=== PATIENT | female | born 1960 | race African-American/Black ===

== ENCOUNTER 2018-02-18 15:01 | Emergency (ER) | payer MEDICARE ==
[~2018-02-18] VITALS: Ht 157.5 cm; Wt 59.1 kg
[~2018-02-18 15:01] MED LIST: ALEN70TA69 PO; ASPI-1213 PO; ATOR40TA71 PO; AUD NEB; DABI150 PO; DIME240C2 PO; DSS100 PO; FURO20 PO; GABA-533 PO; IPRNEB IH; KDUR20 PO; LEVO88TA7 PO; OMEP20 PO; PRED10 PO; TRAM50TA4 PO; VITAD1000 PO
[2018-02-18 15:52] LABS: GLUCOSE,POINT OF CARE 107 MG/DL (70-110)
[2018-02-18 16:54] LABS: HEMOGLOBIN 13.3 g/dL (12.0-16.0); MEAN CORPUSCULAR HEMOGLOBIN 27.6 pg (26.0-34.0); MEAN CORPUSCULAR HGB CONC 34.1 G/dL (31.0-37.0); MEAN CORPUSCULAR VOLUME 81 fL (80-100); PLATELET COUNT (AUTO) 209 K/uL (150-450); RED BLOOD CELL COUNT(AUTO) 4.81 MIL/uL (4.00-5.20)
[2018-02-18 17:06] LABS: ANION GAP 11 mmol/L (8-16); CALCIUM, TOTAL 8.7 mg/dL (8.8-10.5); CARBON DIOXIDE 28 mmol/L (22-29); CHLORIDE 103 mmol/L (98-107); CREATININE 1.04 mg/dL (0.60-1.30); GLOMERULAR FILTR. RATE CALC > 60 mL/min (>60); GLUCOSE,RANDOM 111 mg/dL (70-110); POTASSIUM 3.4 mmol/L (3.5-5.1); SODIUM SERUM 142 mmol/L (136-145); UREA NITROGEN, BLOOD 9 mg/dL (7-18)
[2018-02-18 17:22] LABS: BAND NEUTROPHILS % (MANUAL) 9 % (1-5); BASOPHILS % (MANUAL) 4 % (0-2); EOSINOPHILS % (MANUAL) 2 % (1-6); LYMPHOCYTES % (MANUAL) 31 % (22-44); METAMYELOCYTES % 1 % (0-0); MONOCYTES % (MANUAL) 4 % (2-9); SEGMENTED NEUTROPHILS % 49 % (40-70)
[2018-02-18 19:19] LABS: APPEARANCE,URINE CLEAR (CLEAR); GLUCOSE, URINE (UA) NEGATIVE (NEGATIVE); KETONES,URINE NEGATIVE (NEGATIVE); LEUKOCYTE ESTERASE ,URINE NEGATIVE (NEGATIVE); NITRATE,URINE NEGATIVE (NEGATIVE); OCCULT BLOOD,URINE NEGATIVE (NEGATIVE); PH,URINE 5.5 (5.0-8.0); PROTEIN,URINE TRACE (NEGATIVE)
[2018-02-18 19:24] LABS: BILIRUBIN,URINE PRELIM. POSITIVE (NEGATIVE)
[2018-02-18] MEDS ORDERED: SODIUM PHOS/SODIUM BIPHOS 133 ML ENEMA PR ONE (21:00)
[2018-02-18 22:25] VITALS: BP 121/75
== END 2018-02-18 22:30 | disposition home or self-care (01) ==
LOC: EMS 15:02
DX: K59.00 Constipation, unspecified (principal); G35 Multiple sclerosis; I11.0 Hypertensive heart disease with heart failure; I50.9 Heart failure, unspecified; I25.10 Atherosclerotic heart disease of native coronary artery without angina pectoris; E78.00 Pure hypercholesterolemia, unspecified; I25.2 Old myocardial infarction; E03.9 Hypothyroidism, unspecified; F17.210 Nicotine dependence, cigarettes, uncomplicated; Z95.1 Presence of aortocoronary bypass graft; Z79.82 Long term (current) use of aspirin
CPT/HCPCS: 74018; 82962; 85007; 99285

== ENCOUNTER 2019-09-17 04:55 | Inpatient (IN) | payer MEDICARE ==
[~2019-09-17] VITALS: Ht 162.6 cm; Wt 60.5 kg
[~2019-09-17 04:55] MED LIST changes: +ALEN70TA19 PO; -ALEN70TA69 PO; -ASPI-1213 PO; +ASPI-1484 PO; +CHOL100018 PO; -VITAD1000 PO
[2019-09-17] MEDS ORDERED: LISI-660 PO (05:16)
[2019-09-17] MEDS ORDERED: TIZA4TAB6 PO (05:16)
[2019-09-17] MEDS ORDERED: CLOP75TA3 PO (05:16)
[2019-09-17] MEDS ORDERED: METO25XL PO (05:16)
[2019-09-17 07:11] LABS: APPEARANCE,URINE CLOUDY (CLEAR); BASOPHILS % (AUTO) 0.5 % (0.0-2.0); BILIRUBIN,URINE NEGATIVE (NEGATIVE); EOSINOPHILS % (AUTO) 2.9 % (1.0-6.0); GLUCOSE, URINE (UA) NEGATIVE (NEGATIVE); HEMATOCRIT 39.5 % (36-46); HEMOGLOBIN 13.2 g/dL (12.0-16.0); KETONES,URINE NEGATIVE (NEGATIVE); LEUKOCYTE ESTERASE ,URINE NEGATIVE (NEGATIVE); LYMPHOCYTES # (AUTO) 2.8 K/uL (1.0-4.8); LYMPHOCYTES % (AUTO) 24.8 % (22.0-44.0); MEAN CORPUSCULAR HEMOGLOBIN 27.4 pg (26.0-34.0); MEAN CORPUSCULAR HGB CONC 33.3 G/dL (31.0-37.0); MEAN CORPUSCULAR VOLUME 82 fL (80-100); MONOCYTES # (AUTO) 0.9 K/uL (0.1-1.0); MONOCYTES % (AUTO) 7.8 % (2.0-9.0); NEUTROPHILS # (AUTO) 7.3 K/uL (1.8-7.7); NITRATE,URINE NEGATIVE (NEGATIVE); OCCULT BLOOD,URINE NEGATIVE (NEGATIVE); PLATELET COUNT (AUTO) 322 K/uL (150-450); PROTEIN,URINE NEGATIVE (NEGATIVE); RED BLOOD CELL COUNT(AUTO) 4.81 MIL/uL (4.00-5.20); RED CELL DISTRIBUTION WIDTH 15.7 % (11.5-14.5)
[2019-09-17 07:18] LABS: ANION GAP 6 mmol/L (8-16); CALCIUM, TOTAL 8.8 mg/dL (8.8-10.5); CARBON DIOXIDE 31 mmol/L (22-29); CHLORIDE 108 mmol/L (98-107); CREATININE 0.82 mg/dL (0.60-1.30); GLOMERULAR FILTR. RATE CALC > 60 mL/min (>60); GLUCOSE,RANDOM 102 mg/dL (70-110); SODIUM SERUM 145 mmol/L (136-145); UREA NITROGEN, BLOOD 13 mg/dL (7-18)
[2019-09-17 07:23] LABS: BACTERIA,URINE None Seen /HPF (None Seen); INR 0.9 (0.9-1.1); PROTHROMBIN TIME 9.5 SEC (9.4-11.6); RBC,URINE None Seen /HPF (0-2); SQUAMOUS EPITHELIAL CELL,UR Few /LPF (None Seen); WBC,URINE 0-2 /HPF (0-5)
[2019-09-17 07:24] LABS: AMORPHOUS SEDIMENT,UR Many /LPF (None Seen)
[2019-09-17 07:25] LABS: ALANINE AMINOTRANSFERASE 17 U/L (12-78); ALBUMIN 3.4 g/dL (3.4-5.0); ALKALINE PHOSPHATASE 149 U/L (46-116); ASPARTATE AMINOTRANSFERASE 12 U/L (15-37); BILIRUBIN,TOTAL 0.3 mg/dL (0.1-1.0); CREATINE KINASE, TOTAL ONLY 45 U/L (26-192); TOTAL PROTEIN, SERUM 7.2 g/dL (6.4-8.2)
[2019-09-17 07:33] LABS: B-TYPE NATRIURETIC PEPTIDE 106 pg/mL (0-100)
[2019-09-17] MEDS ORDERED: NITROGLYCERIN 2% (1 GM=INCH) PACKET TP ONE (08:30)
[2019-09-17] MEDS ORDERED: MORPHINE SULFATE 2 MG/ML SYRINGE IVP ONE (08:30)
[2019-09-17] MEDS ORDERED: ONDANSETRON HCL 4 MG/2 ML VIAL IVP ONE (08:30)
[2019-09-17] MEDS ORDERED: ACETAMINOPHEN 325 MG TABLET PO PRN (10:15)
[2019-09-17] MEDS ORDERED: IPRATROPIUM BROMIDE 0.5 MG/2.5 ML NEB SOLUTION NEB PRN (10:15)
[2019-09-17] MEDS ORDERED: MAGNESIUM HYDROXIDE SUSPENSION 30 ML UDCUP PO PRN (10:15)
[2019-09-17] MEDS ORDERED: ZOLPIDEM TARTRATE 5 MG TABLET PO PRN (10:15)
[2019-09-17] MEDS ORDERED: BISACODYL 10 MG RECTAL RECTAL SUPPOSITORY PR PRN (10:15)
[2019-09-17] MEDS ORDERED: MORPHINE SULFATE 2 MG/ML SYRINGE IVP PRN (10:15)
[2019-09-17] MEDS ORDERED: HYDROCODONE/ACETAMINOPHEN 5-325 MG TABLET PO PRN (10:15)
[2019-09-17] MEDS ORDERED: ONDANSETRON HCL 4 MG/2 ML VIAL IVP PRN (10:15)
[2019-09-17] MEDS ORDERED: ALBUTEROL SULFATE 2.5 MG/0.5 ML NEB SOLUTION NEB PRN (10:15)
[2019-09-17] MEDS ORDERED: LEVO75 PO (11:04)
[2019-09-17] MEDS: MethylPREDNISolone SOD SUCC 125 MG/2 ML VIAL IVP SCH ×2 (11:22→18:54)
[2019-09-17] MEDS: ALBUTEROL SULFATE 2.5 MG/0.5 ML NEB SOLUTION NEB SCH ×2 (15:16→20:09)
[2019-09-17] MEDS: IPRATROPIUM BROMIDE 0.5 MG/2.5 ML NEB SOLUTION NEB SCH ×2 (15:16→20:09)
[2019-09-17 16:09] VITALS: BP 94/61
[2019-09-17] MEDS: TiZANidine HCL 4 MG TABLET PO SCH (16:43)
[2019-09-17] MEDS: GABAPENTIN 400 MG CAPSULE PO SCH ×2 (16:43→20:35)
[2019-09-17] MEDS: HEPARIN SODIUM,PORCINE 5,000 UNITS/ML VIAL SQ SCH (16:44)
[2019-09-17] MEDS: BENZONATATE 100 MG CAPSULE PO SCH ×2 (16:44→20:36)
[2019-09-17] MEDS: NITROGLYCERIN 2% (1 GM=INCH) PACKET TP SCH (16:46)
[2019-09-17 20:09] VITALS: BP 100/63
[2019-09-17] MEDS: DOCUSATE SODIUM 100 MG CAPSULE PO SCH (20:35)
[2019-09-17] MEDS: GuaiFENesin SR 600 MG ER TABLET PO SCH (20:35)
[2019-09-17] MEDS: FUROSEMIDE 20 MG TABLET PO SCH (20:36)
[2019-09-17] MEDS: ATORVASTATIN CALCIUM 40 MG TABLET PO SCH (20:37)
[2019-09-17 23:41] VITALS: BP 143/81
[2019-09-18] MEDS: MethylPREDNISolone SOD SUCC 125 MG/2 ML VIAL IVP SCH ×4 (00:22→17:36)
[2019-09-18] MEDS: NITROGLYCERIN 2% (1 GM=INCH) PACKET TP SCH ×2 (00:23→08:00)
[2019-09-18] MEDS: HEPARIN SODIUM,PORCINE 5,000 UNITS/ML VIAL SQ SCH ×3 (00:23→15:40)
[2019-09-18] MEDS: TiZANidine HCL 4 MG TABLET PO SCH ×3 (00:23→15:40)
[2019-09-18] MEDS: IPRATROPIUM BROMIDE 0.5 MG/2.5 ML NEB SOLUTION NEB SCH ×4 (02:00→20:19)
[2019-09-18] MEDS: ALBUTEROL SULFATE 2.5 MG/0.5 ML NEB SOLUTION NEB SCH ×4 (02:00→20:19)
[2019-09-18] MEDS: LEVOTHYROXINE SODIUM 75 MCG TABLET PO SCH (06:12)
[2019-09-18 06:22] VITALS: BP 95/57
[2019-09-18] MEDS ORDERED: ALENDRONATE SODIUM 70 MG TABLET PO SCH (06:30)
[2019-09-18 07:01] LABS: BASOPHILS % (AUTO) 0.1 % (0.0-2.0); EOSINOPHILS % (AUTO) 0.1 % (1.0-6.0); HEMOGLOBIN 11.9 g/dL (12.0-16.0); LYMPHOCYTES # (AUTO) 1.3 K/uL (1.0-4.8); LYMPHOCYTES % (AUTO) 9.2 % (22.0-44.0); MEAN CORPUSCULAR HEMOGLOBIN 27.9 pg (26.0-34.0); MEAN CORPUSCULAR HGB CONC 33.9 G/dL (31.0-37.0); MEAN CORPUSCULAR VOLUME 82 fL (80-100); MONOCYTES # (AUTO) 0.2 K/uL (0.1-1.0); MONOCYTES % (AUTO) 1.8 % (2.0-9.0); NEUTROPHILS # (AUTO) 12.1 K/uL (1.8-7.7); PLATELET COUNT (AUTO) 303 K/uL (150-450); RED BLOOD CELL COUNT(AUTO) 4.26 MIL/uL (4.00-5.20); RED CELL DISTRIBUTION WIDTH 15.7 % (11.5-14.5)
[2019-09-18 07:08] LABS: NEUTROPHILS % (AUTO) 88.8 % (40.0-70.0)
[2019-09-18 07:14] LABS: ANION GAP 9 mmol/L (8-16); CALCIUM, TOTAL 8.9 mg/dL (8.8-10.5); CARBON DIOXIDE 27 mmol/L (22-29); CHLORIDE 106 mmol/L (98-107); CHOL/HDL RATIO 3.3 (3.9-5.7); CHOLESTEROL 179 mg/dL (131-200); CREATININE 0.77 mg/dL (0.60-1.30); GLOMERULAR FILTR. RATE CALC > 60 mL/min (>60); GLUCOSE,RANDOM 200 mg/dL (70-110); HDL CHOLESTEROL 54 mg/dL (40-60); LDL CHOL (CALC.) 104 mg/dL (0-130); POTASSIUM 3.9 mmol/L (3.5-5.1); SODIUM SERUM 142 mmol/L (136-145); TRIGLYCERIDES 107 mg/dL (15-150); UREA NITROGEN, BLOOD 13 mg/dL (7-18)
[2019-09-18 08:39] VITALS: BP 114/63
[2019-09-18] MEDS ORDERED: METOPROLOL SUCCINATE 25 MG ER TABLET PO SCH (09:00)
[2019-09-18] MEDS: POTASSIUM CHLORIDE 20 MEQ ER TABLET PO SCH (09:13)
[2019-09-18] MEDS: CHOLECALCIFEROL (VIT D3) 1,000 UNITS TABLET PO SCH (09:14)
[2019-09-18] MEDS: DOCUSATE SODIUM 100 MG CAPSULE PO SCH ×2 (09:14→22:41)
[2019-09-18] MEDS: BENZONATATE 100 MG CAPSULE PO SCH ×3 (09:14→22:44)
[2019-09-18] MEDS: GABAPENTIN 400 MG CAPSULE PO SCH ×3 (09:14→22:43)
[2019-09-18] MEDS: PANTOPRAZOLE SODIUM 40 MG DR TABLET PO SCH (09:14)
[2019-09-18] MEDS: ASPIRIN 81 MG CHEWABLE TABLET PO SCH (09:15)
[2019-09-18] MEDS: GuaiFENesin SR 600 MG ER TABLET PO SCH ×2 (09:15→22:43)
[2019-09-18] MEDS: CLOPIDOGREL BISULFATE 75 MG TABLET PO SCH (09:15)
[2019-09-18] MEDS: FUROSEMIDE 20 MG TABLET PO SCH ×2 (09:15→22:41)
[2019-09-18 10:59] VITALS: BP 101/58
[2019-09-18] MEDS: LISINOPRIL 5 MG TABLET PO SCH (12:04)
[2019-09-18 15:06] VITALS: BP 88/63
[2019-09-18] MEDS: HYDROCORTISONE 2.5% 30 GM CREAM TP PRN (15:44)
[2019-09-18 19:46] VITALS: BP 94/58
[2019-09-18] MEDS: ATORVASTATIN CALCIUM 40 MG TABLET PO SCH (22:42)
[2019-09-18] MEDS: BISACODYL 10 MG RECTAL RECTAL SUPPOSITORY PR SCH (22:45)
[2019-09-19] MEDS: HEPARIN SODIUM,PORCINE 5,000 UNITS/ML VIAL SQ SCH ×2 (00:01→08:59)
[2019-09-19 00:03] VITALS: BP 103/50
[2019-09-19] MEDS: TiZANidine HCL 4 MG TABLET PO SCH ×2 (00:04→08:58)
[2019-09-19] MEDS: MethylPREDNISolone SOD SUCC 125 MG/2 ML VIAL IVP SCH ×2 (00:05→06:40)
[2019-09-19] MEDS: IPRATROPIUM BROMIDE 0.5 MG/2.5 ML NEB SOLUTION NEB SCH ×3 (03:16→14:00)
[2019-09-19] MEDS: ALBUTEROL SULFATE 2.5 MG/0.5 ML NEB SOLUTION NEB SCH ×3 (03:17→14:00)
[2019-09-19 04:35] VITALS: BP 105/52
[2019-09-19] MEDS: LEVOTHYROXINE SODIUM 75 MCG TABLET PO SCH (06:37)
[2019-09-19 07:06] LABS: BASOPHILS % (AUTO) 0.1 % (0.0-2.0); EOSINOPHILS % (AUTO) 0.1 % (1.0-6.0); HEMATOCRIT 34.9 % (36-46); HEMOGLOBIN 11.7 g/dL (12.0-16.0); LYMPHOCYTES # (AUTO) 1.2 K/uL (1.0-4.8); LYMPHOCYTES % (AUTO) 6.6 % (22.0-44.0); MEAN CORPUSCULAR HEMOGLOBIN 27.5 pg (26.0-34.0); MEAN CORPUSCULAR HGB CONC 33.5 G/dL (31.0-37.0); MEAN CORPUSCULAR VOLUME 82 fL (80-100); MONOCYTES # (AUTO) 0.6 K/uL (0.1-1.0); MONOCYTES % (AUTO) 3.5 % (2.0-9.0); NEUTROPHILS # (AUTO) 16.6 K/uL (1.8-7.7); PLATELET COUNT (AUTO) 302 K/uL (150-450); RED BLOOD CELL COUNT(AUTO) 4.26 MIL/uL (4.00-5.20); RED CELL DISTRIBUTION WIDTH 15.9 % (11.5-14.5)
[2019-09-19 07:07] LABS: NEUTROPHILS % (AUTO) 89.7 % (40.0-70.0)
[2019-09-19 07:37] LABS: ANION GAP 7 mmol/L (8-16); CALCIUM, TOTAL 8.5 mg/dL (8.8-10.5); CARBON DIOXIDE 27 mmol/L (22-29); CHLORIDE 107 mmol/L (98-107); CREATININE 0.85 mg/dL (0.60-1.30); GLOMERULAR FILTR. RATE CALC > 60 mL/min (>60); GLUCOSE,RANDOM 180 mg/dL (70-110); POTASSIUM 3.9 mmol/L (3.5-5.1); SODIUM SERUM 141 mmol/L (136-145); UREA NITROGEN, BLOOD 10 mg/dL (7-18)
[2019-09-19 07:38] VITALS: BP 101/64
[2019-09-19] MEDS: CHOLECALCIFEROL (VIT D3) 1,000 UNITS TABLET PO SCH (08:57)
[2019-09-19] MEDS: POTASSIUM CHLORIDE 20 MEQ ER TABLET PO SCH (08:58)
[2019-09-19] MEDS: GABAPENTIN 400 MG CAPSULE PO SCH (08:58)
[2019-09-19] MEDS: BENZONATATE 100 MG CAPSULE PO SCH (08:58)
[2019-09-19] MEDS: PANTOPRAZOLE SODIUM 40 MG DR TABLET PO SCH (08:58)
[2019-09-19] MEDS: CLOPIDOGREL BISULFATE 75 MG TABLET PO SCH (08:58)
[2019-09-19] MEDS: LISINOPRIL 5 MG TABLET PO SCH (08:58)
[2019-09-19] MEDS: FUROSEMIDE 20 MG TABLET PO SCH (08:58)
[2019-09-19] MEDS: GuaiFENesin SR 600 MG ER TABLET PO SCH (08:58)
[2019-09-19] MEDS: DOCUSATE SODIUM 100 MG CAPSULE PO SCH (08:58)
[2019-09-19] MEDS: BISACODYL 10 MG RECTAL RECTAL SUPPOSITORY PR SCH (08:59)
[2019-09-19] MEDS: ASPIRIN 81 MG CHEWABLE TABLET PO SCH (08:59)
[2019-09-19] MEDS ORDERED: CARVEDILOL 3.125 MG TABLET PO SCH (09:00)
[2019-09-19 11:22] VITALS: BP 116/68
[2019-09-19] MEDS: HYDROCORTISONE 2.5% 30 GM CREAM TP PRN (14:33)
[2019-09-19 15:09] VITALS: BP 91/56
== END 2019-09-19 18:10 | disposition home or self-care (01) | DRG 311 ==
LOC: EMS 04:57 → 5S 15:03
PROVIDERS: ADMIT Internal Medicine; ATTEND Internal Medicine
DX: I24.9 Acute ischemic heart disease, unspecified (principal); G50.0 Trigeminal neuralgia; G35 Multiple sclerosis; M54.5 Low back pain; R10.30 Lower abdominal pain, unspecified; E03.9 Hypothyroidism, unspecified; I34.0 Nonrheumatic mitral (valve) insufficiency; D72.829 Elevated white blood cell count, unspecified; E78.00 Pure hypercholesterolemia, unspecified; E78.5 Hyperlipidemia, unspecified; M62.838 Other muscle spasm; I11.0 Hypertensive heart disease with heart failure; I25.10 Atherosclerotic heart disease of native coronary artery without angina pectoris; I50.9 Heart failure, unspecified; M79.7 Fibromyalgia; M81.0 Age-related osteoporosis without current pathological fracture; Z82.49 Family history of ischemic heart disease and other diseases of the circulatory system; I25.2 Old myocardial infarction; Z87.891 Personal history of nicotine dependence; Z95.1 Presence of aortocoronary bypass graft; Z79.899 Other long term (current) drug therapy; Z79.82 Long term (current) use of aspirin; Z88.8 Allergy status to other drugs, medicaments and biological substances
CPT/HCPCS: 72131; 74176; 93005; 93306; 94640; 97112; 97163; 97530; J1644; J2270; J2405; J2930